=== PATIENT | female | born 1995 | race Caucasian/White ===

== ENCOUNTER 2023-05-16 10:09 | Emergency (ER) | payer OTHER ==
[~2023-05-16] VITALS: Ht 167.6 cm; Wt 63.5 kg
[2023-05-16] MEDS ORDERED: DICLOXACILLIN500 MG PO ×2 (12:37→13:31)
== END 2023-05-16 14:26 | disposition home or self-care (01) ==
LOC: ER 10:09
DX: N61.0 Mastitis without abscess (principal)
CPT/HCPCS: 96372; 99284; J1885